=== PATIENT | male | born 1995 | race African-American/Black ===

== ENCOUNTER 2024-06-15 00:39 | Emergency (ER) | payer OTHER ==
[2024-06-15] MEDS ORDERED: NA CHLORIDE 0.9% 1,000 ML ONE (01:15)
[2024-06-15 01:28] LABS: Absolute Basophils 0.1 K/uL (0-0.5); Absolute Eosinophils 1.5 K/uL (0-0.5); Absolute Lymphocytes (CBC) 1.6 K/uL (0.7-4.9); Absolute Monocytes 1.7 K/uL (0.1-1.3); Basophils % 0.4 % (0-1.3); Eosinophils % 11.5 % (0-4.4); Hematocrit 35.3 % (39.6-49.0); Lymphocytes % 12.4 % (15.3-44.8); MCH 31.7 pg (27.0-35.0); MCHC 33.9 g/dL (32.0-36.0); MCV 93.6 fL (80-100); MPV 6.6 fL (7.6-11.3); Monocytes % 13.2 % (3.3-12.3); Neutrophils % 62.5 % (41.7-73.7); Nucleated Red Blood Cells % 0.1 % (0-0); Platelets 346 thou/uL (152-406); RBC Red Blood Cell Count 3.77 M/uL (4.33-5.43); Red Cell Distribution Width 12.3 % (12.1-15.2)
[2024-06-15 01:46] LABS: ALT/SGPT < 14 U/L (16-61); AST/SGOT 15 U/L (15-37); Albumin 2.7 g/dL (3.4-5.0); Albumin/Globulin Ratio 0.8 (1.1-1.8); Alkaline Phosphatase 45 U/L (45-117); BUN Blood Urea Nitrogen 8 mg/dL (7-18); Bicarbonate 28 mEq/L (21-32); Bilirubin Total 0.6 mg/dL (0.2-1.0); Globulin 3.2 g/dL (2.3-3.5); Glomerular Filtration Rate 64 ml/min (=/>90); Glucose Level 83 mg/dL (74-106); Lipase 35 U/L (13-75); Protein, Total 5.9 g/dL (6.4-8.2); Sodium Level 139 mEq/L (136-145)
[2024-06-15 02:22] LABS: Specific Gravity 1.021 (1.005-1.030); Sqamous Epithelial None Seen /HPF (None Seen); Urine Bacteria None Seen /HPF (<20); Urine Bilirubin NEGATIVE (Negative); Urine Blood Negative (Negative); Urine Clarity Clear (Clear); Urine Color Yellow (Yellow); Urine Culture Reflex Order NOT NEEDED; Urine Glucose NEGATIVE (Negative); Urine Ketones NEGATIVE (Negative); Urine Microscopic Reflex YN ORDER UMIC; Urine Mucus 2+ /HPF (None Seen); Urine Nitrite NEGATIVE (Negative); Urine Protein NEGATIVE (Negative); Urine RBC None Seen /HPF (None Seen); Urine Urobilinogen Normal (Normal); Urine WBC <5 /HPF (<5); Urine pH 5.5 (5.0-7.0)
--- NOTE | 2024-06-15 03:14 | RAD REPORT ---
PROCEDURE: CT Abdomen and Pelvis With Intravenous Contrast CLINICAL INDICATION: The patient is 29 years old and is Male; ABD PAIN IV ONLY Bed Name: 3 TECHNIQUE: Axial computed tomography images of the abdomen and pelvis with intravenous contrast. Sagittal and coronal reformatted images were created and reviewed. This CT exam was performed using one or more of the following dose reduction techniques: automated exposure control, adjustment of the mA a nd/or kV according to patient size, and/or use of iterative reconstruction technique. COMPARISON: No relevant prior studies available. FINDINGS: LUNG BASES: Areas of hyperlucency involving the visualized right middle lobe and medial right lung base, favoring sequela of air trapping. No consolidation. ABDOMEN: LIVER: Unremarkable No mass. GALLBLADDER AND BILE DUCTS: Unremarkable No calcified stones. No ductal dilation. PANCREAS: Unremarkable No mass. No ductal dilation. SPLEEN: Unremarkable No splenomegaly. ADRENALS: Unremarkable No mass. KIDNEYS AND URETERS: Left nephrectomy. Right kidney appears unremarkable. STOMACH AND BOWEL: Fluid demonstrated throughout the colonic lumen, suggesting diarrheal illness. N o focal bowel wall or mucosal thickening or adjacent fat stranding to suggest inflammatory enteritis or colitis. No obstruction. PELVIS: APPENDIX: No findings to suggest acute appendicitis. BLADDER: Small focal calcification along the inferior left lateral margin of the collapsed urinary bladder. Suspicious for phlebolith versus small retained distal left intraureteral stone. REPRODUCTIVE: Well-circumscribed moderate-sized right intrascrotal fluid collection, measuring up t o 5.4 cm, favoring a spermatocele or loculated hydrocele. ABDOMEN and PELVIS: INTRAPERITONEAL SPACE: Unremarkable No free air. No significant fluid collection. BONES/JOINTS: No acute fracture. No dislocation. SOFT TISSUES: Unremarkable VASCULATURE: Unremarkable No abdominal aortic aneurysm. LYMPH NODES: Unremarkable No enlarged lymph nodes. IMPRESSION: 1. Fluid demonstrated throughout the colonic lumen, suggesting diarrheal illness. No focal bowel wa ll or mucosal thickening or adjacent fat stranding to suggest inflammatory enteritis or colitis. 2. Well-circumscribed moderate-sized right intrascrotal fluid collection, measuring up to 5.4 cm, f avoring a spermatocele or loculated hydrocele. Recommend further characterization by scrotal ultrasound. 3. Left nephrectomy. Electronically signed by: Spencer Yanez MD 06/15/2024 03:07 AM CDT RP Due to temporary technical issues with the [employer] reporting system, reports are being reena d by the in-house radiologist without review as a courtesy to ensure prompt reporting the interpreting radiologist is fully responsible for the content of the report. Transcribed Date/Time: 06/15/2024 3:14 AM
--- NOTE | 2024-06-15 03:22 | ER ---
Nurse's Notes [facility] Name: Tevin Carlson Age: 29 yrs Sex: Male : 1995 Arrival Date: 06/15/2024 Time: 00:39 Bed 3 Private MD: Diagnosis: Rectal bleeding Presentation: 06/15 00:45 Chief complaint: Patient states: I have bloody stool for three weeks, sometimes its bm8 bright red sometimes dark red. 00:45 Method Of Arrival: EMS: [facility] bm8 00:45 Coronavirus screen: At this time, the client does not indicate any symptoms associated bm8 with coronavirus-19. Ebola Screen: Patient negative for fever greater than or equal to 101.5 degrees Fahrenheit, and additional compatible Ebola Virus Disease symptoms Patient denies exposure to infectious person. Patient denies travel to an Ebola-affected area in the 21 days before illness onset. No symptoms or risks identified at this time. Initial Sepsis Screen: Does the patient meet any 2 criteria? No. Patient's initial sepsis screen is negative. Does the patient have a suspected source of infection? No. Patient's initial sepsis screen is negative. Risk Assessment: Do you want to hurt yourself or someone else? Patient reports no desire to harm self or others. Onset of symptoms was May 26, 2023. 00:45 Acuity: ULICES 3 bm8 Triage Assessment: 01:23 General: Appears in no apparent distress. comfortable, Behavior is calm, cooperative, bm8 appropriate for age. Pain: Complains of pain in umbilical area, suprapubic area and left lower quadrant Pain currently is 5 out of 10 on a pain scale. Pain: Quality of pain is described as aching. EENT: No deficits noted. No signs and/or symptoms were reported regarding the EENT system. Neuro: No deficits noted. Level of Consciousness is awake, alert, obeys commands, Oriented to person, place, time, situation, Appropriate for age. Cardiovascular: Denies chest pain, Capillary refill < 3 seconds in bilateral fingers Patient's skin is warm and dry. Respiratory: Airway is patent Respiratory effort is even, unlabored, Respiratory pattern is regular, symmetrical. GI: Abdomen is flat, non-distended, Stools are reported to be bloody. Bowel sounds present X 4 quads. Abdomen is tender to palpation in umbilical area Reports rectal bleeding, bloody stool, Pain is 5 out of 10 on a pain scale. : No signs and/or symptoms were reported regarding the genitourinary system. Derm: No signs and/or symptoms reported regarding the dermatologic system. Musculoskeletal: No signs and/or symptoms reported regarding the musculoskeletal system. Historical: - Allergies: : No Known Allergies; bm8 - Home Meds: : None [Active]; bm8 - PMHx: : None; bm8 - PSHx: : kideny; hernia; bm8 - Immunization history:: Adult Immunizations up to date. - Infectious Disease History:: Denies. - Family history:: not pertinent. - Social history:: Smoking status: Patient denies any tobacco usage or history of. Screenin:27 [facility] ED Fall Risk Assessment (Adult) History of falling in the last 3 months, bm8 including since admission No falls in past 3 months (0 pts) Confusion or Disorientation No (0 pts) Intoxicated or Sedated No (0 pts) Impaired Gait Yes (1 pt) Mobility Assist Device Used No (0 pt) Altered Elimination No (0 pt) Score/Fall Risk Level 0 - 2 = Low Risk Oriented to surroundings, Maintained a safe environment, Educated pt \T\ family on fall prevention, incl call for assistance when getting out of bed, Assessed \T\ reinforced patient's understanding of fall precautions, Hourly rounding (assess needs \T\ fall precautionary measures) done, Used ambulatory aids as needed (educated on \T\ assisted with), Used gait belt as appropriate. Abuse screen: Denies threats or abuse. Nutritional screening: No deficits noted. Tuberculosis screening: No symptoms or risk factors identified. Assessment: :27 Reassessment: see triage assessment. bm8 02:29 Reassessment: Patient appears in no apparent distress at this time. No changes from bm8 previously documented assessment. Patient and/or family updated on plan of care and expected duration. Pain level reassessed. Patient is alert, oriented x 3, equal unlabored respirations, skin warm/dry/pink. Vital Signs: 00:45 BP 106 / 66; Pulse 75; Resp 18; Temp 98.6; Pulse Ox 100% ; Weight 66.22 kg; Height 5 bm8 ft. 9 in. ; Pain 5/10; 02:29 BP 120 / 61; Pulse 72; Resp 18; Temp 98.6; Pulse Ox 99% ; Pain 5/10; bm8 03:36 BP 123 / 65; Pulse 77; Resp 18; Pulse Ox 100% ; cp4 00:45 Body Mass Index 21.56 (66.22 kg, 175.26 cm) bm8 00:45 Pain Scale: Adult bm8 02:29 Pain Scale: Adult bm8 Jennifer Coma Score: 01:27 Eye Response: spontaneous(4). Motor Response: obeys commands(6). Verbal Response: bm8 oriented(5). Total: 15. ED Course: 00:45 Patient arrived in ED. cp4 00:47 Elie Sol MD is Attending Physician. rt 01:20 Camilo Lewis, RN is Primary Nurse. bm8 01:23 Triage completed. bm8 01:23 Arm band placed on right wrist. bm8 01:27 Patient has correct armband on for positive identification. Bed in low position. Call bm8 light in reach. Side rails up X2. Adult w/ patient. Security at bedside. Client placed on continuous cardiac and pulse oximetry monitoring. NIBP monitoring applied. Pulse ox on. NIBP on. Door closed. Warm blanket given. Pillow given. Verbal reassurance given. Head of bed elevated. 01:27 No provider procedures requiring assistance completed. Initial lab(s) drawn, by me, bm8 sent to lab. Inserted saline lock: 20 gauge in right antecubital area, using aseptic technique. Blood collected. Flushed with 10 mL NS. Patient maintains SpO2 saturation greater than 95% on room air. 02:29 CT Abd/Pelvis - IV Contrast Only In Process Unspecified. EDMS 03:36 Provided Education on: rectal bleeding. cp4 03:36 intact, bleeding controlled, No redness/swelling at site. Pressure dressing applied. cp4 Administered Medications: 01:20 Drug: NS 0.9% IV 1000 ml IV at 1 bolus Per protocol; to be given as a bolus over 60 bm8 minutes Route: IV; Rate: 1 bolus; Site: right antecubital; 02:32 Follow up: Response: No adverse reaction; IV Status: Completed infusion bm8 Medication: 01:27 VIS not applicable for this client. bm8 Outcome: 03:21 Discharge ordered by . rt 03:36 Discharged to Law Enforcement cp4 03:36 Condition: stable 03:36 Discharge instructions given to [employer] guards Instructed on discharge instructions, follow up and referral plans. Demonstrated understanding of instructions, follow-up care, 03:38 Patient left the ED. cp4 Signatures: Dispatcher [employer] Elie Mancilla MD MD rt Potter, Christina cp4 Camilo Lewis RN RN bm8 Corrections: (The following items were deleted from the chart) 02:32 02:31 Response: No adverse reaction; IV Status: Completed infusion bm8 bm8
--- NOTE | 2024-06-15 03:22 | EDPHYS ---
Physician Documentation [facility] Name: Tevin Carlson Age: 29 yrs Sex: Male : 1995 Arrival Date: 06/15/2024 Time: 00:39 Bed 3 Private MD: ED Physician Elie Sol HPI: 06/15 01:14 This 29 yrs old Black Male presents to ER via Unassigned with complaints of Abdominal rt Pain. 01:14 Patient presents to the ED with 3 months of suprapubic pain. Patient states that he has rt rectal bleeding, some brown stools with blood admixed in, states that he notices mostly when he wipes. States that the pain has been intermittent and they have been trying to get him in with a photographic editor at [facility]. The patient reports that his pain is worsened today causing him to pass out. Denies injury, other acute complaints, symptoms are moderate in severity, no other aggravating or alleviating factors.. Historical: - Allergies: : No Known Allergies; bm8 - Home Meds: : None [Active]; bm8 - PMHx: : None; bm8 - PSHx: 01:23 kideny; hernia; bm8 - Immunization history:: Adult Immunizations up to date. - Infectious Disease History:: Denies. - Family history:: not pertinent. - Social history:: Smoking status: Patient denies any tobacco usage or history of. ROS: 01:14 Constitutional: Negative for fever, chills, and weight loss, Cardiovascular: Negative rt for chest pain, palpitations, and edema, Respiratory: Negative for shortness of breath, cough, wheezing, and pleuritic chest pain, MS/Extremity: Negative for injury and deformity, Skin: Negative for injury, rash, and discoloration, 01:14 Abdomen/GI: Positive for abdominal pain, rectal bleeding, Exam: :14 Constitutional: This is a well developed, well nourished patient who is awake, alert, rt and in no acute distress. Head/Face: Normocephalic, atraumatic. Chest/axilla: Normal chest wall appearance and motion. Nontender with no deformity. No lesions are appreciated. Cardiovascular: Regular rate and rhythm with a normal S1 and S2. No gallops, murmurs, or rubs. Normal PMI, no JVD. No pulse deficits. Respiratory: Lungs have equal breath sounds bilaterally, clear to auscultation and percussion. No rales, rhonchi or wheezes noted. No increased work of breathing, no retractions or nasal flaring. Skin: Warm, dry with normal turgor. Normal color with no rashes, no lesions, and no evidence of cellulitis. MS/ Extremity: Pulses equal, no cyanosis. Neurovascular intact. Full, normal range of motion. Neuro: Awake and alert, GCS 15, oriented to person, place, time, and situation. Cranial nerves II-XII grossly intact. Motor strength 5/5 in all extremities. Sensory grossly intact. Cerebellar exam normal. Normal gait. 01:14 ECG was reviewed by the Attending Physician. 01:14 Abdomen/GI: Mild suprapubic tenderness without rebound, guarding, stones, Vital Signs: 00:45 BP 106 / 66; Pulse 75; Resp 18; Temp 98.6; Pulse Ox 100% ; Weight 66.22 kg; Height 5 bm8 ft. 9 in. ; Pain 5/10; 02:29 BP 120 / 61; Pulse 72; Resp 18; Temp 98.6; Pulse Ox 99% ; Pain 5/10; bm8 03:36 BP 123 / 65; Pulse 77; Resp 18; Pulse Ox 100% ; cp4 00:45 Body Mass Index 21.56 (66.22 kg, 175.26 cm) bm8 00:45 Pain Scale: Adult bm8 02:29 Pain Scale: Adult bm8 Jennifer Coma Score: 01:27 Eye Response: spontaneous(4). Motor Response: obeys commands(6). Verbal Response: bm8 oriented(5). Total: 15. MDM: 00:54 Medical Screening Exam initiated rt 03:26 Differential Diagnosis Rectal bleeding, colitis, tumor, diverticulitis. Data reviewed: rt vital signs, nurses notes, lab test result(s), EKG, radiologic studies. Consideration of Admission/Observation Escalation of care including admission/observation considered. Hemodynamically stable, H\T\H is stable, this has been present for about [address] scan shows no acute findings, informed the patient of the scrotal fluid collection and recommendations for an ultrasound. Recommended the patient obtain a colonoscopy as an outpatient for further evaluation. No indications for admission at this time.. Independent interpretation of the following test(s) in the Emergency Department CT Scan: My interpretation is No bowel obstruction seen on my interpretation of CT scan images. Counseling: I had a detailed discussion with the patient and/or guardian regarding the historical points, exam findings, and any diagnostic results supporting the discharge/admit diagnosis, lab results, radiology results, the need for outpatient follow up, to return to the emergency department if symptoms worsen or persist or if there are any questions or concerns that arise at home. Response to treatment: There is no appreciated change of the patient's symptoms at this time. 06/15 01:00 Order name: CBC with Diff; Complete Time: 01:44 rt 06/15 01:00 Order name: CMP; Complete Time: 02:24 rt 06/15 01:00 Order name: Lipase; Complete Time: :24 rt 06/15 01:00 Order name: Urinalysis w/ reflexes; Complete Time: 02:24 rt 06/15 01:00 Order name: CT Abd/Pelvis - IV Contrast Only rt 06/15 01:00 Order name: IV Saline Lock; Complete Time: 01:20 rt 06/15 01:00 Order name: Labs collected and sent; Complete Time: :20 rt 06/15 01:00 Order name: Misc. Order: Please remove handcuffs to allow for nursing care; Complete rt Time: 02:12 06/15 01:00 Order name: EKG - Nurse/Tech; Complete Time: 01:20 rt EC:14 Rate is 70 beats/min. Rhythm is regular, Normal Sinus Rhythm with No ectopy. QRS [place] rt is Normal. VT interval is normal. QRS interval is normal. QT interval is normal. No Q waves. T waves are Normal. No ST changes noted. Interpreted by me. Administered Medications: 01:20 Drug: NS 0.9% IV 1000 ml IV at 1 bolus Per protocol; to be given as a bolus over 60 bm8 minutes Route: IV; Rate: 1 bolus; Site: right antecubital; 02:32 Follow up: Response: No adverse reaction; IV Status: Completed infusion bm8 Disposition Summary: 06/15/24 03:21 Discharge Ordered Notes: Location: Law Enforcement rt Problem: an ongoing problem rt Symptoms: are unchanged rt Condition: Stable rt Diagnosis - Rectal bleeding rt Followup: rt - With: Private Physician - When: 2 - 3 days - Reason: Discharge Instructions: - Discharge Summary Sheet rt - Rectal Bleeding rt Forms: - Medication Reconciliation Form rt - Antibiotic Education rt - Prescription Opioid Use rt - Patient Portal Instructions rt - Leadership Thank You Letter rt Signatures: Dispatcher [employer] EDElie Escobar MD MD rt Camilo Lewis, RN RN bm8 Corrections: (The following items were deleted from the chart) 01:01 01:01 CBC+H.LAB.BRZ ordered. EDMS EDMS 01:01 01:01 COMPREHENSIVE METABOLIC PANEL+C.LAB.BRZ ordered. EDMS EDMS 01:01 01:01 LIPASE+C.LAB.BRZ ordered. EDMS EDMS 01:01 01:01 Urinalysis+U.LAB.BRZ ordered. EDMS EDMS 01:01 01:01 Abdomen Pelvis W Con+CT.RAD.BRZ ordered. EDMS EDMS
--- NOTE | 2024-06-15 12:07 | EKG ---
Test Date: 2024-06-15 Test Time: 01:07:45 Order Manager: TOM MEASUREMENT RESULTS: Intervals: Rate: 70 WA: 126 QRSD: 92 QT: 382 QTc: 412 [place]: P: 52 WA: 126 QRS: 82 T: 83 INTERPRETIVE STATEMENTS: Normal sinus rhythm Lateral infarct, age undetermined Abnormal ECG No previous ECG available for comparison Electronically Signed On 06-15-24 12:06:14 CDT by Massimo Masters
[2024-06-16 11:00] VITALS: TEMP 98.6
[2024-06-16 11:03] VITALS: BP 123/65; O2SAT 100
== END 2024-06-15 03:38 ==
LOC: ER 00:39
DX: K62.5 Hemorrhage of anus and rectum (principal); R10.32 Left lower quadrant pain
CPT/HCPCS: 93005; 85025; 81001; 36415; 83690; 80053; 74177; 96360; 99285; Q9967; J7030